=== PATIENT | male | born 1980 | race Hispanic/Latino ===

== ENCOUNTER 2022-05-02 09:10 | Inpatient (IN) | payer SELFPAY ==
[2022-05-02 09:59] LABS: #Basophils 0.1 thou/uL (0.0-0.2); #Eosinphils 0.1 thou/uL (0.0-0.7); #Lymphocytes 0.8 thou/uL (1.20-3.40); #Monocytes 1.1 thou/uL (0.11-0.59); #Neutrophils 15.2 thou/uL (1.40-6.50); %Basophils 0.4 % (0.0-1.0); %Eosinophils 0.5 % (0.0-10.0); %Lymphocytes 4.4 % (21.0-51.0); %Monocytes 6.2 % (0.0-10.0); %Neutrophils 88.5 % (42.0-75.0); Hemoglobin 7.4 g/dL (14.0-18.0); Mean Corpuscular HGB CONC 30.9 g/dL (32.0-36.0); Mean Corpuscular Hemoglobin 35.6 pg (27.0-31.0); Mean Platelet Volume 8.6 fL (7.4-10.4); Platelet Count 201 thou/uL (130-400); RBC Distribution Width 15.3 % (11.5-14.5); Red Blood Cell (RBC) Count 2.07 mill/uL (4.70-6.10); White Blood Cell (WBC) Count 17.2 thou/uL (4.8-10.8)
[2022-05-02 10:11] LABS: ALT (SGPT) 46 U/L (8-55); AST (SGOT) 100 U/L (5-34); Albumin 1.5 g/dL (3.5-5.0); Alkaline Phosphatase 200 U/L (40-110); Anion Gap 16 mmol/L (10-20); BUN (Urea Nitrogen) 31 mg/dL (8.9-20.6); Bilirubin, Total 20.8 mg/dL (0.2-1.2); Calc. Creatinine Clearance 0 mL/min (70-130); Calcium 7.1 mg/dL (7.8-10.44); Carbon Dioxide 12 mmol/L (22-29); Chloride 99 mmol/L (98-107); Estimated GFR 39; Globulin 2.7 g/dL (2.4-3.5); Glucose 149 mg/dL (70-105); Lipase 50 U/L (8-78); Potassium 3.6 mmol/L (3.5-5.1); Protein, Total 4.2 g/dL (6.0-8.3); Sodium 123 mmol/L (136-145)
[2022-05-02 10:14] LABS: Phosphorus 4.6 mg/dL (2.3-4.7)
[2022-05-02 10:15] LABS: Magnesium 2.1 mg/dL (1.6-2.6)
[2022-05-02] MEDS ORDERED: Furosemide 40 MG/4 ML VIAL ONE (10:30)
[2022-05-02 10:38] LABS: Band 23 % (5-11); Bite Cells SLIGHT = 2-5 cells (100X) (0-1/hpf); Burr Cells SLIGHT = 2-5 cells (100X) (0-1/hpf); Lymphocytes 5 % (21-51); MDiff Complete? YES; Macrocytosis SLIGHT = 6-15 cells (100X) (0-5/hpf); Metamyelocyte 3 % (0-0); Monocytes 4 % (0-10); Myelocyte 1 % (0-0); Neutrophil 64 % (42-75); Platelet Morphology Comment Appears Adequate; Polychromasia SLIGHT = 2-3 cells (100X) (0-2/hpf); Schistocytes SLIGHT = 2-5 cells (100X) (0-1/hpf)
[2022-05-02 11:20] LABS: INR-International Normal Ratio 2.2; Prothrombin Time 24.9 sec (12.0-14.7)
[2022-05-02 11:21] LABS: PTT 57.7 sec (22.9-36.1)
[2022-05-02] MEDS ORDERED: Ondansetron PF 4 MG/2 ML Vial IVP PRN (11:37)
[2022-05-02] MEDS ORDERED: traMADol HCl 50 MG TAB PO PRN (11:48)
[2022-05-02] MEDS: Albumin 25% 25 GM/100 ML BOT IVPB SCH ×2 (12:26→17:39)
[2022-05-02] MEDS ORDERED: cefTRIAXone\\ROCEPHIN 2 GM VIAL ONE (12:27)
[2022-05-02 13:18] LABS: Lactic Acid 3.1 mmol/L (0.5-2.2)
[2022-05-02 13:25] LABS: Acetaminophen Less than 10.0 mcg/mL (10.0-30.0); Alcohol Less than 10 mg/dL (Less than 10); Salicylate Less than 8.0 mg/dL (15.0-30.0)
[2022-05-02 13:51] LABS: HBCM Index 0.06 S/CO (0-0.79); HBSAg Index 0.27 S/CO (0-0.99); Hep A IgM AB Non-Reactive (NonReactive); Hep A IgM S/CO 0.25 S/CO (0-0.79); Hep B Surf Ag Non-Reactive S/CO (NonReactive); Hep C IgG Ab Non-Reactive (NonReactive); Hep C Index 0.09 S/CO (0-0.79); Hepatitis B Core IgM Abs Non-Reactive (NonReactive)
[2022-05-02] MEDS: cefTRIAXone\\ROCEPHIN 2 GM in Sodium Chloride 0.9% 100 ML IVPB SCH (14:53)
[2022-05-02] MEDS ORDERED: Lidocaine 1% MPF 2 ML VIAL ONE (15:08)
[2022-05-02] MEDS ORDERED: Sodium Bicarbonate 2.5 MEQ/5 ML VIAL ONE (15:08)
[2022-05-02 15:47] LABS: Bacteria/HPF None Seen HPF (None Seen); Bilirubin 2+ (Negative); Blood, Urine Negative (Negative); Clarity Clear (Clear); Glucose, Urine (Dipstick) Normal (Negative); Ketone, Urine Negative (Negative); Leukocyte Negative Leu/uL (Negative); Nitrite Negative (Negative); Protein, Urine (Dipstick) Negative (Neg-Trace); RBC/HPF None Seen HPF (0-3); Specific Gravity, Urine 1.007 (1.002-1.036); Squamous Epithelial None Seen HPF (0-3); Urobilinogen Normal mg/dL (Less than 2); WBC/HPF 0-3 HPF (0-3)
[2022-05-02 15:50] LABS: Urine Culture Reflex No No
[2022-05-02 16:12] LABS: Amphetamine Not Detected (NotDetected); Barbiturates Screen Not Detected (NotDetected); Benzodiazepine Screen Not Detected (NotDetected); Cocaine Metabolite Screen Not Detected (NotDetected); Methadone Not Detected (NotDetected); Methamphetamine Not Detected (NotDetected); Opiate Screen Not Detected (NotDetected); Oxycodone Screen Not Detected (NotDetected); Phencyclidine (PCP) Not Detected (NotDetected); THC/Cannabinoid Screen Not Detected (NotDetected); Tricyclic Screen Not Detected (NotDetected)
[2022-05-02 17:24] LABS: Creatinine, Urine 34.1 mg/dL (63-166)
[2022-05-02 17:31] LABS: RBC Count-Automated (BF) 57 /cu.mm; WBC/Nucleated-Auto (BF) 80 /cu.mm
[2022-05-02 17:35] LABS: SARS-CoV-2 NAA Rapid Test Not Detected (NotDetected)
[2022-05-02 17:44] VITALS: BMI 33.9
[2022-05-02 18:21] LABS: BF Color Yellow; Body Fluid Source Ascites Body Fluid; Clarity Clear (Clear); Tube # EDTA
[2022-05-02 18:23] LABS: BF Segmented Neutrophils 7 %; Cell Count Non Hematic 75 %; Lymphocytes 18 %
[2022-05-02] MEDS ORDERED: Furosemide 40 MG/4 ML VIAL SLOW IVP SCH (22:00)
[2022-05-02 22:06] LABS: Anion Gap 13 mmol/L (10-20); BUN (Urea Nitrogen) 34 mg/dL (8.9-20.6); Calc. Creatinine Clearance 67 mL/min (70-130); Calcium 6.9 mg/dL (7.8-10.44); Carbon Dioxide 14 mmol/L (22-29); Chloride 101 mmol/L (98-107); Estimated GFR 44; Glucose 124 mg/dL (70-105); Sodium 125 mmol/L (136-145)
[2022-05-02 22:10] LABS: Potassium 2.7 mmol/L (3.5-5.1)
[2022-05-03] MEDS: Potassium Chloride 20 MEQ TAB PO SCH ×6 (00:28→21:42)
[2022-05-03] MEDS: Albumin 25% 25 GM/100 ML BOT IVPB SCH ×4 (00:28→21:42)
[2022-05-03 06:21] LABS: Phosphorus 3.9 mg/dL (2.3-4.7)
[2022-05-03 06:25] LABS: ALT (SGPT) 35 U/L (8-55); AST (SGOT) 79 U/L (5-34); Alkaline Phosphatase 145 U/L (40-110); Anion Gap 14 mmol/L (10-20); BUN (Urea Nitrogen) 32 mg/dL (8.9-20.6); Bilirubin, Total 19.6 mg/dL (0.2-1.2); Calc. Creatinine Clearance 73 mL/min (70-130); Carbon Dioxide 15 mmol/L (22-29); Chloride 101 mmol/L (98-107); Estimated GFR 48; Globulin 1.8 g/dL (2.4-3.5); Glucose 90 mg/dL (70-105); Magnesium 1.9 mg/dL (1.6-2.6); Protein, Total 3.8 g/dL (6.0-8.3); Sodium 127 mmol/L (136-145)
[2022-05-03 06:30] LABS: Potassium 2.6 mmol/L (3.5-5.1)
[2022-05-03 06:32] LABS: Hemoglobin 5.5 g/dL (14.0-18.0); Mean Corpuscular HGB CONC 32.4 g/dL (32.0-36.0); Mean Corpuscular Hemoglobin 36.8 pg (27.0-31.0); Mean Platelet Volume 8.5 fL (7.4-10.4); Platelet Count 126 thou/uL (130-400); RBC Distribution Width 14.9 % (11.5-14.5); White Blood Cell (WBC) Count 8.9 thou/uL (4.8-10.8)
[2022-05-03 06:33] LABS: #Eosinphils 0.1 thou/uL (0.0-0.7); #Lymphocytes 0.6 thou/uL (1.20-3.40); #Monocytes 0.9 thou/uL (0.11-0.59); #Neutrophils 7.3 thou/uL (1.40-6.50); %Basophils 0.5 % (0.0-1.0); %Eosinophils 1.4 % (0.0-10.0); %Lymphocytes 6.8 % (21.0-51.0); %Monocytes 9.6 % (0.0-10.0); %Neutrophils 81.8 % (42.0-75.0)
[2022-05-03] MEDS ORDERED: Electrolyte Replacement Protocol FS PRN (07:00)
[2022-05-03] MEDS ORDERED: Magnesium 2 GM/50 ML(in water) 2 GM in Premix Bag 1 BAG IVPB SCH (08:00)
[2022-05-03] MEDS: Folic Acid 1 MG TAB PO SCH (08:55)
[2022-05-03] MEDS: Thiamine 100 MG TAB PO SCH (08:55)
[2022-05-03] MEDS ORDERED: Multivitamin W/ Minerals 1 TAB PO SCH (09:00)
[2022-05-03 11:01] LABS: Iron Binding Capacity, Total 53 mcg/dL (261-462)
[2022-05-03] MEDS ORDERED: Albumin 25% 25 GM/100 ML BOT IVPB SCH (12:00)
[2022-05-03] MEDS ORDERED: Pantoprazole 80 MG in Sodium Chloride 0.9% 100 ML IVPB SCH (13:00)
[2022-05-03] MEDS: cefTRIAXone\\ROCEPHIN 2 GM in Sodium Chloride 0.9% 100 ML IVPB SCH (14:35)
[2022-05-03 14:41] LABS: Hemoglobin 6.9 g/dL (14.0-18.0)
[2022-05-03 14:58] LABS: Anion Gap 14 mmol/L (10-20); BUN (Urea Nitrogen) 31 mg/dL (8.9-20.6); Calc. Creatinine Clearance 77 mL/min (70-130); Calcium 7.1 mg/dL (7.8-10.44); Carbon Dioxide 14 mmol/L (22-29); Chloride 102 mmol/L (98-107); Estimated GFR 52; Glucose 115 mg/dL (70-105); Potassium 3.1 mmol/L (3.5-5.1); Sodium 127 mmol/L (136-145)
[2022-05-03] MEDS: Multivitamins, Adult 10 ML, Folic Acid 1 MG, Thiamine HCl 100 MG in Dextrose 5 %-0.45 %... IV SCH (15:55)
[2022-05-03] MEDS: Octreotide Acetate 1,250 MCG in Sodium Chloride 0.9% 250 ML 250 ML IVPB SCH (16:25)
[2022-05-03 21:54] LABS: Hemoglobin 8.2 g/dL (14.0-18.0)
[2022-05-04] MEDS: Albumin 25% 25 GM/100 ML BOT IVPB SCH ×2 (02:35→12:52)
[2022-05-04] MEDS: Potassium Chloride 20 MEQ TAB PO SCH (02:36)
[2022-05-04] MEDS ORDERED: Lorazepam 2 MG/ML VIAL IM PRN (02:52)
[2022-05-04] MEDS ORDERED: Lorazepam 1 MG TAB PO PRN (02:52)
[2022-05-04] MEDS ORDERED: Ondansetron ODT 4 MG TAB PO PRN (02:52)
[2022-05-04] MEDS: Lorazepam 1 MG TAB PO SCH ×4 (03:20→22:13)
[2022-05-04 05:35] LABS: #Basophils 0.1 thou/uL (0.0-0.2); #Eosinphils 0.1 thou/uL (0.0-0.7); #Lymphocytes 0.7 thou/uL (1.20-3.40); #Monocytes 0.8 thou/uL (0.11-0.59); #Neutrophils 6.7 thou/uL (1.40-6.50); %Basophils 0.6 % (0.0-1.0); %Eosinophils 1.2 % (0.0-10.0); %Lymphocytes 8.4 % (21.0-51.0); %Monocytes 9.1 % (0.0-10.0); %Neutrophils 80.7 % (42.0-75.0); Hemoglobin 6.6 g/dL (14.0-18.0); Mean Corpuscular HGB CONC 33.1 g/dL (32.0-36.0); Mean Corpuscular Hemoglobin 35.3 pg (27.0-31.0); Platelet Count 136 thou/uL (130-400); RBC Distribution Width 17.9 % (11.5-14.5); Red Blood Cell (RBC) Count 1.87 mill/uL (4.70-6.10); White Blood Cell (WBC) Count 8.3 thou/uL (4.8-10.8)
[2022-05-04 05:53] LABS: Anion Gap 13 mmol/L (10-20); BUN (Urea Nitrogen) 28 mg/dL (8.9-20.6); Calc. Creatinine Clearance 81 mL/min (70-130); Calcium 7.6 mg/dL (7.8-10.44); Carbon Dioxide 13 mmol/L (22-29); Chloride 108 mmol/L (98-107); Estimated GFR 55; Glucose 111 mg/dL (70-105); Sodium 130 mmol/L (136-145)
[2022-05-04] MEDS: Thiamine 100 MG TAB PO SCH (08:37)
[2022-05-04] MEDS: Folic Acid 1 MG TAB PO SCH (08:37)
[2022-05-04] MEDS: Multivit, Therapeutic 1 TAB PO SCH (08:38)
[2022-05-04] MEDS ORDERED: Furosemide 40 MG/4 ML VIAL SLOW IVP SCH (11:00)
[2022-05-04 11:50] LABS: Hemoglobin 8.5 g/dL (14.0-18.0); Platelet Count 160 thou/uL (130-400)
[2022-05-04] MEDS: cefTRIAXone\\ROCEPHIN 2 GM in Sodium Chloride 0.9% 100 ML IVPB SCH (12:52)
[2022-05-04] MEDS ORDERED: Albumin 25% 25 GM/100 ML BOT IVPB SCH (13:00)
[2022-05-04] MEDS ORDERED: Phytonadione 10 MG in Sodium Chloride 0.9% 50 ML IVPB SCH (13:00)
[2022-05-04] MEDS: Multivitamins, Adult 10 ML, Folic Acid 1 MG, Thiamine HCl 100 MG in Dextrose 5 %-0.45 %... IV SCH ×2 (16:00→16:13)
[2022-05-04 17:06] LABS: ANA Symphony (Qualitative) Negative (Negative); ANA Symphony (Quantitative) 0.4 Ratio (< 0.7 Negative); EliA Vaculitis New Method **** NEW METHOD ****
[2022-05-04 20:07] LABS: Hemoglobin 8.8 g/dL (14.0-18.0); Platelet Count 131 thou/uL (130-400)
[2022-05-04] MEDS: Pantoprazole 40 MG VIAL IVP SCH (22:13)
[2022-05-04] MEDS: Hydrocortisone Acetate 25 MG Suppository PR SCH (22:17)
[2022-05-04] MEDS: Octreotide Acetate 1,250 MCG in Sodium Chloride 0.9% 250 ML 250 ML IVPB SCH (22:36)
[2022-05-05] MEDS ORDERED: Lorazepam 1 MG TAB PO PRN (02:52)
[2022-05-05] MEDS: Lorazepam 1 MG TAB PO SCH ×4 (03:47→22:39)
[2022-05-05 06:14] LABS: Hemoglobin 7.8 g/dL (14.0-18.0); Platelet Count 160 thou/uL (130-400)
[2022-05-05 06:25] LABS: PTT 58.4 sec (22.9-36.1)
[2022-05-05 06:32] LABS: INR-International Normal Ratio 2.2; Prothrombin Time 25.1 sec (12.0-14.7)
[2022-05-05 06:38] LABS: ALT (SGPT) 39 U/L (8-55); AST (SGOT) 104 U/L (5-34); Albumin 2.7 g/dL (3.5-5.0); Alkaline Phosphatase 119 U/L (40-110); Anion Gap 14 mmol/L (10-20); BUN (Urea Nitrogen) 24 mg/dL (8.9-20.6); Bilirubin, Total 24.7 mg/dL (0.2-1.2); Calc. Creatinine Clearance 87 mL/min (70-130); Carbon Dioxide 13 mmol/L (22-29); Chloride 110 mmol/L (98-107); Estimated GFR 60; Globulin 1.7 g/dL (2.4-3.5); Glucose 103 mg/dL (70-105); Protein, Total 4.4 g/dL (6.0-8.3); Sodium 134 mmol/L (136-145)
[2022-05-05] MEDS ORDERED: Potassium Chloride 20 MEQ TAB PO SCH (08:00)
[2022-05-05] MEDS: Multivit, Therapeutic 1 TAB PO SCH (09:09)
[2022-05-05] MEDS: Pantoprazole 40 MG VIAL IVP SCH ×2 (09:09→22:39)
[2022-05-05] MEDS: Folic Acid 1 MG TAB PO SCH (09:09)
[2022-05-05] MEDS: Thiamine 100 MG TAB PO SCH (09:10)
[2022-05-05] MEDS: Hydrocortisone Acetate 25 MG Suppository PR SCH ×2 (10:16→22:39)
[2022-05-05] MEDS: cefTRIAXone\\ROCEPHIN 2 GM in Sodium Chloride 0.9% 100 ML IVPB SCH (13:22)
[2022-05-05 14:45] LABS: Hemoglobin 8.3 g/dL (14.0-18.0)
[2022-05-05] MEDS: Multivitamins, Adult 10 ML, Folic Acid 1 MG, Thiamine HCl 100 MG in Dextrose 5 %-0.45 %... IV SCH (15:33)
[2022-05-05] MEDS ORDERED: GoLYTELY 4,000 ml Bottle PO SCH (16:15)
[2022-05-05] MEDS: Octreotide Acetate 1,250 MCG in Sodium Chloride 0.9% 250 ML 250 ML IVPB SCH (22:03)
[2022-05-06] MEDS ORDERED: Lorazepam 1 MG TAB PO PRN (02:52)
[2022-05-06] MEDS: Lorazepam 0.5 MG TAB PO SCH ×4 (03:42→21:39)
[2022-05-06 05:11] LABS: #Basophils 0.1 thou/uL (0.0-0.2); #Eosinphils 0.1 thou/uL (0.0-0.7); #Lymphocytes 1.2 thou/uL (1.20-3.40); #Monocytes 1.2 thou/uL (0.11-0.59); #Neutrophils 8.9 thou/uL (1.40-6.50); %Basophils 0.6 % (0.0-1.0); %Eosinophils 1.3 % (0.0-10.0); %Lymphocytes 10.1 % (21.0-51.0); %Monocytes 10.1 % (0.0-10.0); %Neutrophils 77.9 % (42.0-75.0); Mean Corpuscular HGB CONC 32.3 g/dL (32.0-36.0); Mean Corpuscular Hemoglobin 34.3 pg (27.0-31.0); Mean Platelet Volume 7.8 fL (7.4-10.4); Platelet Count 168 thou/uL (130-400); RBC Distribution Width 18.9 % (11.5-14.5); Red Blood Cell (RBC) Count 2.34 mill/uL (4.70-6.10); White Blood Cell (WBC) Count 11.4 thou/uL (4.8-10.8)
[2022-05-06 05:31] LABS: ALT (SGPT) 42 U/L (8-55); AST (SGOT) 99 U/L (5-34); Albumin 2.6 g/dL (3.5-5.0); Alkaline Phosphatase 121 U/L (40-110); Anion Gap 15 mmol/L (10-20); BUN (Urea Nitrogen) 19 mg/dL (8.9-20.6); Calc. Creatinine Clearance 109 mL/min (70-130); Carbon Dioxide 15 mmol/L (22-29); Chloride 111 mmol/L (98-107); Estimated GFR 79; Globulin 1.8 g/dL (2.4-3.5); Glucose 110 mg/dL (70-105); Protein, Total 4.4 g/dL (6.0-8.3); Sodium 138 mmol/L (136-145)
[2022-05-06] MEDS ORDERED: Potassium Chloride 20 MEQ TAB PO SCH ×2 (08:00→21:45)
[2022-05-06] MEDS: Folic Acid 1 MG TAB PO SCH (09:54)
[2022-05-06] MEDS: Pantoprazole 40 MG VIAL IVP SCH ×2 (09:55→21:40)
[2022-05-06] MEDS: Hydrocortisone Acetate 25 MG Suppository PR SCH ×2 (09:55→21:39)
[2022-05-06] MEDS: Spironolactone 100 MG TAB PO SCH (09:55)
[2022-05-06] MEDS: Multivitamin W/ Minerals 1 TAB PO SCH (09:55)
[2022-05-06] MEDS: Multivit, Therapeutic 1 TAB PO SCH (09:55)
[2022-05-06] MEDS: Thiamine 100 MG TAB PO SCH (09:55)
[2022-05-06] MEDS: Furosemide 40 MG TAB PO SCH (09:55)
[2022-05-06] MEDS: prednisoLONE 10 MG ODT TAB PO SCH (09:56)
[2022-05-06] MEDS: cefTRIAXone\\ROCEPHIN 2 GM in Sodium Chloride 0.9% 100 ML IVPB SCH (12:39)
[2022-05-06] MEDS ORDERED: PROPOFOL 200 MG/20 ML VIAL ONE (13:06)
[2022-05-06 19:26] LABS: Potassium 3.1 mmol/L (3.5-5.1)
[2022-05-06] MEDS: Rifaximin 550 MG TAB PO SCH (21:39)
[2022-05-07] MEDS ORDERED: Lorazepam 0.5 MG TAB PO PRN (02:52)
[2022-05-07 05:48] LABS: ALT (SGPT) 46 U/L (8-55); AST (SGOT) 102 U/L (5-34); Albumin 2.4 g/dL (3.5-5.0); Alkaline Phosphatase 117 U/L (40-110); Anion Gap 12 mmol/L (10-20); BUN (Urea Nitrogen) 21 mg/dL (8.9-20.6); Bilirubin, Total 22.2 mg/dL (0.2-1.2); Calc. Creatinine Clearance 87 mL/min (70-130); Calcium 7.8 mg/dL (7.8-10.44); Carbon Dioxide 16 mmol/L (22-29); Chloride 115 mmol/L (98-107); Estimated GFR 63; Globulin 1.9 g/dL (2.4-3.5); Glucose 185 mg/dL (70-105); Potassium 3.1 mmol/L (3.5-5.1); Protein, Total 4.3 g/dL (6.0-8.3); Sodium 140 mmol/L (136-145)
[2022-05-07] MEDS ORDERED: Potassium Chloride 20 MEQ TAB PO SCH (08:00)
[2022-05-07] MEDS: Thiamine 100 MG TAB PO SCH (08:35)
[2022-05-07] MEDS: Spironolactone 100 MG TAB PO SCH (08:35)
[2022-05-07] MEDS: Furosemide 40 MG TAB PO SCH (08:35)
[2022-05-07] MEDS: Multivitamin W/ Minerals 1 TAB PO SCH (08:35)
[2022-05-07] MEDS: Folic Acid 1 MG TAB PO SCH (08:35)
[2022-05-07] MEDS: Multivit, Therapeutic 1 TAB PO SCH (08:35)
[2022-05-07] MEDS: prednisoLONE 10 MG ODT TAB PO SCH (08:36)
[2022-05-07] MEDS: Pantoprazole 40 MG VIAL IVP SCH ×2 (08:36→21:15)
[2022-05-07] MEDS: Hydrocortisone Acetate 25 MG Suppository PR SCH ×2 (08:36→21:15)
[2022-05-07] MEDS: Rifaximin 550 MG TAB PO SCH ×2 (08:36→21:15)
[2022-05-07 13:23] LABS: Potassium 3.2 mmol/L (3.5-5.1)
[2022-05-08 01:55] LABS: #Lymphocytes 0.7 thou/uL (1.20-3.40); #Monocytes 0.8 thou/uL (0.11-0.59); #Neutrophils 11.5 thou/uL (1.40-6.50); %Basophils 0.1 % (0.0-1.0); %Eosinophils 0.1 % (0.0-10.0); %Lymphocytes 5.4 % (21.0-51.0); %Monocytes 6.2 % (0.0-10.0); %Neutrophils 88.2 % (42.0-75.0); Hemoglobin 7.5 g/dL (14.0-18.0); Mean Corpuscular Hemoglobin 36.4 pg (27.0-31.0); Mean Platelet Volume 8.4 fL (7.4-10.4); Platelet Count 166 thou/uL (130-400); RBC Distribution Width 18.9 % (11.5-14.5); Red Blood Cell (RBC) Count 2.05 mill/uL (4.70-6.10)
[2022-05-08 02:17] LABS: Anion Gap 13 mmol/L (10-20); BUN (Urea Nitrogen) 24 mg/dL (8.9-20.6); Calc. Creatinine Clearance 87 mL/min (70-130); Carbon Dioxide 15 mmol/L (22-29); Chloride 118 mmol/L (98-107); Estimated GFR 63; Glucose 170 mg/dL (70-105); Potassium 3.1 mmol/L (3.5-5.1); Sodium 143 mmol/L (136-145)
[2022-05-08] MEDS ORDERED: Potassium Chloride 20 MEQ TAB PO SCH ×2 (06:30→07:45)
[2022-05-08] MEDS ORDERED: Magnesium Oxide 400 MG TAB PO SCH (07:45)
[2022-05-08] MEDS: prednisoLONE 10 MG ODT TAB PO SCH (07:59)
[2022-05-08] MEDS: Multivit, Therapeutic 1 TAB PO SCH (08:01)
[2022-05-08] MEDS: Rifaximin 550 MG TAB PO SCH ×2 (08:01→22:24)
[2022-05-08] MEDS: Folic Acid 1 MG TAB PO SCH (08:01)
[2022-05-08] MEDS: Thiamine 100 MG TAB PO SCH (08:01)
[2022-05-08] MEDS: Hydrocortisone Acetate 25 MG Suppository PR SCH ×2 (08:02→22:24)
[2022-05-08] MEDS: Spironolactone 100 MG TAB PO SCH (08:02)
[2022-05-08] MEDS: Multivitamin W/ Minerals 1 TAB PO SCH (08:02)
[2022-05-08] MEDS: Furosemide 40 MG TAB PO SCH (08:02)
[2022-05-08] MEDS: Pantoprazole 40 MG VIAL IVP SCH ×2 (08:02→22:24)
[2022-05-09 07:51] LABS: ALT (SGPT) 70 U/L (8-55); AST (SGOT) 104 U/L (5-34); Albumin 2.6 g/dL (3.5-5.0); Alkaline Phosphatase 167 U/L (40-110); Anion Gap 9 mmol/L (10-20); BUN (Urea Nitrogen) 22 mg/dL (8.9-20.6); Bilirubin, Total 17.5 mg/dL (0.2-1.2); Calc. Creatinine Clearance 110 mL/min (70-130); Calcium 8.1 mg/dL (7.8-10.44); Carbon Dioxide 17 mmol/L (22-29); Chloride 120 mmol/L (98-107); Estimated GFR 84; Globulin 2.2 g/dL (2.4-3.5); Glucose 152 mg/dL (70-105); Magnesium 1.7 mg/dL (1.6-2.6); Potassium 3.2 mmol/L (3.5-5.1); Protein, Total 4.8 g/dL (6.0-8.3); Sodium 143 mmol/L (136-145)
[2022-05-09 08:01] LABS: #Lymphocytes 1.1 thou/uL (1.20-3.40); #Monocytes 0.8 thou/uL (0.11-0.59); #Neutrophils 13.7 thou/uL (1.40-6.50); %Eosinophils 0.2 % (0.0-10.0); %Lymphocytes 6.8 % (21.0-51.0); %Monocytes 5.1 % (0.0-10.0); %Neutrophils 87.9 % (42.0-75.0); Hemoglobin 8.2 g/dL (14.0-18.0); Mean Corpuscular HGB CONC 31.4 g/dL (32.0-36.0); Mean Corpuscular Hemoglobin 34.2 pg (27.0-31.0); Mean Platelet Volume 8.7 fL (7.4-10.4); Platelet Count 144 thou/uL (130-400); RBC Distribution Width 18.7 % (11.5-14.5); White Blood Cell (WBC) Count 15.6 thou/uL (4.8-10.8)
[2022-05-09] MEDS: Folic Acid 1 MG TAB PO SCH (09:21)
[2022-05-09] MEDS: Rifaximin 550 MG TAB PO SCH ×2 (09:21→19:50)
[2022-05-09] MEDS: Thiamine 100 MG TAB PO SCH (09:21)
[2022-05-09] MEDS: Furosemide 40 MG TAB PO SCH (09:22)
[2022-05-09] MEDS: Multivitamin W/ Minerals 1 TAB PO SCH (09:22)
[2022-05-09] MEDS: Spironolactone 100 MG TAB PO SCH (09:22)
[2022-05-09] MEDS: Multivit, Therapeutic 1 TAB PO SCH (09:22)
[2022-05-09] MEDS: Hydrocortisone Acetate 25 MG Suppository PR SCH ×2 (09:22→19:51)
[2022-05-09] MEDS: prednisoLONE 10 MG ODT TAB PO SCH (09:25)
[2022-05-09] MEDS: Pantoprazole 40 MG VIAL IVP SCH ×2 (09:26→19:50)
[2022-05-09] MEDS ORDERED: Potassium Chloride 20 MEQ TAB PO SCH (10:00)
[2022-05-09] MEDS ORDERED: Magnesium 2 GM/50 ML(in water) 2 GM in Premix Bag 1 BAG IVPB SCH (10:00)
[2022-05-10 05:01] LABS: #Lymphocytes 1.1 thou/uL (1.20-3.40); #Monocytes 0.9 thou/uL (0.11-0.59); #Neutrophils 14.1 thou/uL (1.40-6.50); %Eosinophils 0.2 % (0.0-10.0); %Lymphocytes 6.8 % (21.0-51.0); %Monocytes 5.3 % (0.0-10.0); %Neutrophils 87.7 % (42.0-75.0); Hemoglobin 7.6 g/dL (14.0-18.0); Mean Corpuscular Hemoglobin 34.4 pg (27.0-31.0); Mean Platelet Volume 9.1 fL (7.4-10.4); Platelet Count 123 thou/uL (130-400); RBC Distribution Width 18.5 % (11.5-14.5); Red Blood Cell (RBC) Count 2.21 mill/uL (4.70-6.10); White Blood Cell (WBC) Count 16.1 thou/uL (4.8-10.8)
[2022-05-10 05:24] LABS: ALT (SGPT) 76 U/L (8-55); AST (SGOT) 98 U/L (5-34); Albumin 2.5 g/dL (3.5-5.0); Alkaline Phosphatase 165 U/L (40-110); Anion Gap 11 mmol/L (10-20); BUN (Urea Nitrogen) 21 mg/dL (8.9-20.6); Bilirubin, Total 15.6 mg/dL (0.2-1.2); Calc. Creatinine Clearance 132 mL/min (70-130); Calcium 8.1 mg/dL (7.8-10.44); Carbon Dioxide 16 mmol/L (22-29); Chloride 118 mmol/L (98-107); Estimated GFR 104; Globulin 2.3 g/dL (2.4-3.5); Glucose 134 mg/dL (70-105); Potassium 3.5 mmol/L (3.5-5.1); Protein, Total 4.8 g/dL (6.0-8.3); Sodium 141 mmol/L (136-145)
[2022-05-10] MEDS: Furosemide 40 MG TAB PO SCH (09:26)
[2022-05-10] MEDS: prednisoLONE 10 MG ODT TAB PO SCH (09:26)
[2022-05-10] MEDS: Multivitamin W/ Minerals 1 TAB PO SCH (09:26)
[2022-05-10] MEDS: Spironolactone 100 MG TAB PO SCH (09:26)
[2022-05-10] MEDS: Rifaximin 550 MG TAB PO SCH ×2 (09:26→20:21)
[2022-05-10] MEDS: Folic Acid 1 MG TAB PO SCH (09:27)
[2022-05-10] MEDS: Hydrocortisone Acetate 25 MG Suppository PR SCH ×2 (09:27→20:19)
[2022-05-10] MEDS: Thiamine 100 MG TAB PO SCH (09:27)
[2022-05-10] MEDS: Pantoprazole 40 MG VIAL IVP SCH ×2 (09:27→20:22)
[2022-05-11] MEDS: Rifaximin 550 MG TAB PO SCH (08:35)
[2022-05-11] MEDS: Multivitamin W/ Minerals 1 TAB PO SCH (08:35)
[2022-05-11] MEDS: Thiamine 100 MG TAB PO SCH (08:35)
[2022-05-11] MEDS: prednisoLONE 10 MG ODT TAB PO SCH (08:36)
[2022-05-11] MEDS: Hydrocortisone Acetate 25 MG Suppository PR SCH (08:36)
[2022-05-11] MEDS: Spironolactone 100 MG TAB PO SCH (08:36)
[2022-05-11] MEDS: Furosemide 40 MG TAB PO SCH (08:36)
[2022-05-11] MEDS: Folic Acid 1 MG TAB PO SCH (08:36)
[2022-05-11 10:46] LABS: Hemoglobin 7.9 g/dL (14.0-18.0)
[2022-05-11 12:36] VITALS: BP 156/83; TEMP 97.5
== END 2022-05-11 14:15 | disposition home or self-care (01) | DRG 432 ==
LOC: ERS 09:10 → ERHOLD 11:05 → SURG B 13:22 → NEURO 05-03 14:38
PROVIDERS: ADMIT Family Medicine; ATTEND Internal Medicine
PROC: 0W9G3ZZ Drainage of Peritoneal Cavity, Percutaneous Approach (ICD-10-PCS; 2022-05-02)
PROC: 30233J1 Transfusion of Nonautologous Serum Albumin into Peripheral Vein, Percutaneous Approach (ICD-10-PCS; 2022-05-02)
PROC: 30233N1 Transfusion of Nonautologous Red Blood Cells into Peripheral Vein, Percutaneous Approach (ICD-10-PCS; 2022-05-03)
PROC: 0DJ08ZZ Inspection of Upper Intestinal Tract, Via Natural or Artificial Opening Endoscopic (ICD-10-PCS; principal; 2022-05-06)
PROC: 0DJD8ZZ Inspection of Lower Intestinal Tract, Via Natural or Artificial Opening Endoscopic (ICD-10-PCS; 2022-05-06)
DX: K70.31 Alcoholic cirrhosis of liver with ascites (principal); K72.00 Acute and subacute hepatic failure without coma; D62 Acute posthemorrhagic anemia; E87.1 Hypo-osmolality and hyponatremia; N17.9 Acute kidney failure, unspecified; E87.2 Acidosis; D68.9 Coagulation defect, unspecified; E46 Unspecified protein-calorie malnutrition; K76.6 Portal hypertension; K70.11 Alcoholic hepatitis with ascites; E87.6 Hypokalemia; D63.8 Anemia in other chronic diseases classified elsewhere; K31.89 Other diseases of stomach and duodenum; F10.20 Alcohol dependence, uncomplicated; Z20.822 Contact with and (suspected) exposure to COVID-19; K64.8 Other hemorrhoids; Z68.32 Body mass index [BMI] 32.0-32.9, adult
CPT/HCPCS: 36415; 36430; 49083; 71045; 74176; 76705; 76770; 80048; 80053; 80074; 80143; 80179; 80306; 80307; 81001; 82042; 82105; 82140; 82248; 82390; 82570; 82607; 82728; 83516; 83550; 83605; 83690; 83735; 83880; 84100; 84157; 84300; 84484; 85014; 85018; 85025; 85049; 85060; 85610; 85730; 86015; 86038; 86225; 86850; 86900; 86901; 87040; 87070; 87205; 87811; 89051; 93005; 93306; 96374; C9113; J0696; J1940; J2354; J2704; J3411; J3430; J3475; J3490; J7042; J7050; J7510; P9016; P9047; U0002